=== PATIENT | female | born 1935 | race Caucasian/White ===

== ENCOUNTER 2018-01-26 16:17 | Inpatient (IN) | payer MEDICARE ==
[~2018-01-26] VITALS: Ht 160 cm; Wt 72.1 kg
--- NOTE | ~2018-01-26 | PN ---
PATIENT:VALORIE UNDERWOOD MEDICAL RECORD: [id number] LOCATION:[facility] ADMISSION DATE: 01/26/18 PROGRESS NOTE DATE OF SERVICE: 01/30/2018 SUBJECTIVE: The patient's case was discussed with staff. She has no new complaint. OBJECTIVE: The patient is in good behavioral control with limited insight about her condition. She is impaired cognitively, but is eating well. ASSESSMENT: No change in diagnoses. PLAN: Supportive and educational interventions were made. The family has requested that I discontinue the Aricept. I do not know the reason, but will find out, and as simply a matter of respecting their wishes, I will discontinue it for the time being. In addition to this, I am going to continue tapering her Celexa downward and I will reduce it to 10 mg a day starting tomorrow. TRANSINT:[id number] Voice Confirmation ID: [id number] DOCUMENT ID: [id number] CASEY HAMILTON MD at 1327 CC: [id number] DICTATION DATE: 01/30/18 1303 HAMMER SETTER: 01/30/18 1325 ADM IN [facility] [address] [place] [address]
--- NOTE | ~2018-01-26 | PN ---
PATIENT:VALORIE UNDERWOOD MEDICAL RECORD: [id number] LOCATION:[facility] ADMISSION DATE: 01/26/18 PROGRESS NOTE DATE OF SERVICE: 02/01/2018 SUBJECTIVE: No new complaint. OBJECTIVE: Staff report the patient is doing better overall. She is tolerating medications well and is cooperative. On exam, mood is for the most part euthymic. Affect is rather constricted. Speech remains somewhat terse. Content of thought is negative for overt psychosis. Sensorium shows no change. ASSESSMENT: No change in diagnosis. PLAN: 1. Continue current medication. 2. Continue supportive therapy. TRANSINT:[id number] Voice Confirmation ID: [id number] DOCUMENT ID: [id number] RANDY LONGO III, MD at 0530 CC: [id number] DICTATION DATE: 02/01/18 1159 POLICE PATROL OFFICER: 02/01/18 1304 ADM IN [facility] [address] [place] [address]
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
--- NOTE | ~2018-01-26 | PN ---
PATIENT:VALORIE UNDERWOOD MEDICAL RECORD: [id number] LOCATION:[facility] ADMISSION DATE: 01/26/18 PROGRESS NOTE DATE OF SERVICE: 02/07/2018 SUBJECTIVE: The patient's case was discussed with staff. She has no new complaint. OBJECTIVE: The patient is in good behavioral control with limited insight about her condition. She does tolerate her medicines well. ASSESSMENT: No change in diagnoses. PLAN: The patient will be transitioned out of the hospital today. Her long-term prognosis is guarded. She does not represent an acute danger to herself or others. Followup will be with her primary care physician. TRANSINT:[id number] Voice Confirmation ID: [id number] DOCUMENT ID: [id number] CASEY HAMILTON MD at 1159 CC: [id number] DICTATION DATE: 02/07/18 1259 BUSINESS EDITOR: 02/07/18 1314 DIS IN 02/07/18 [id number] [place] [address]
--- NOTE | ~2018-01-26 | PN ---
PATIENT:VALORIE UNDERWOOD MEDICAL RECORD: [id number] LOCATION:[facility] ADMISSION DATE: 01/26/18 PROGRESS NOTE DATE OF SERVICE: 02/06/2018 SUBJECTIVE: The patient's case was discussed with staff. She has no new complaint. OBJECTIVE: The patient denies intent to harm herself or others. She generally tolerates her medicines well. Eye contact is fair. ASSESSMENT: No change in diagnoses. PLAN: Current medicines and therapies have been reviewed and will be maintained. Long-term prognosis is guarded. I anticipate she can be transitioned out of the hospital tomorrow. TRANSINT:[id number] Voice Confirmation ID: [id number] DOCUMENT ID: [id number] CASEY HAMILTON MD at 1244 CC: [id number] DICTATION DATE: 02/06/18 1312 SUPERVISOR RECORD PRESS: 02/06/18 1317 DIS IN 02/07/18 [id number] [place] [address]
--- NOTE | ~2018-01-26 | PN ---
PATIENT:VALORIE UNDERWOOD MEDICAL RECORD: [id number] LOCATION:[facility] ADMISSION DATE: 01/26/18 PROGRESS NOTE DATE OF SERVICE: 01/31/2018 SUBJECTIVE: The patient's case was discussed with staff. She has no new complaint. OBJECTIVE: The patient appears a little sedated. Her short term memory is severely impaired. She denies any intent to harm herself or others and has not been aggressive. ASSESSMENT: No change in diagnoses. PLAN: Supportive and educational interventions were made. Assisted prognosis is guarded. I am going to discontinue her Celexa and will reduce her dose of Klonopin. TRANSINT:[id number] Voice Confirmation ID: [id number] DOCUMENT ID: [id number] CASEY HAMILTON MD at 1203 CC: [id number] DICTATION DATE: 01/31/18 1336 SIMULATION TECHNICIAN: 01/31/[address] [facility] [address] [place] [address]
--- NOTE | ~2018-01-26 | PN ---
PATIENT:VALORIE UNDERWOOD MEDICAL RECORD: [id number] LOCATION:[facility] ADMISSION DATE: 01/26/18 PROGRESS NOTE DATE OF SERVICE: 02/05/2018 SUBJECTIVE: The patient's case was discussed with staff. She has no new complaint. OBJECTIVE: The patient is in good behavioral control with limited insight about her condition. She tolerates her medicines well. ASSESSMENT: No change in diagnoses. PLAN: Current medicines and therapies have been reviewed and will be maintained. Long-term prognosis is guarded. TRANSINT:[id number] Voice Confirmation ID: [id number] DOCUMENT ID: [id number] CASEY HAMILTON MD at 1301 CC: [id number] DICTATION DATE: 02/05/18 1341 IMMIGRATION CASE MANAGER: 02/05/18 1354 ADM IN [place] [id number] [place] [address]
--- NOTE | ~2018-01-26 | PN ---
PATIENT:VALORIE UNDERWOOD MEDICAL RECORD: [id number] LOCATION:[facility] ADMISSION DATE: 01/26/18 PROGRESS NOTE DATE OF SERVICE: 02/04/2018 SUBJECTIVE: The patient's case was discussed with staff. She has no new complaint. OBJECTIVE: The patient is in good behavioral control with limited insight about her condition. She tolerates her medicines well. She was tested by Dr. Hilda Castrejon and scored 12 out of 30. She is going to have her Seroquel discontinued secondary to some sedation. For the time being, I am going to keep her on the low dose of Klonopin, but may change that soon. TRANSINT:[id number] Voice Confirmation ID: [id number] DOCUMENT ID: [id number] CASEY HAMILTON MD at 1019 CC: [id number] DICTATION DATE: 02/04/18 1243 SEED COLLECTOR: 02/04/18 1351 ADM IN [place] [id number] [place] [address]
--- NOTE | ~2018-01-26 | PN ---
PATIENT:VALORIE UNDERWOOD MEDICAL RECORD: [id number] LOCATION:[facility] ADMISSION DATE: 01/26/18 PROGRESS NOTE DATE OF SERVICE: 01/29/2018 SUBJECTIVE: The patient's case was discussed with staff. She has no new complaint. OBJECTIVE: The patient is sleeping reasonably well. She is eating reasonably well. She has not been aggressive here and has no real recollection of her [facility] the [facility]. ASSESSMENT: No change in diagnoses. PLAN: Supportive and educational interventions were made. Halfway prognosis is guarded. TRANSINT:[id number] Voice Confirmation ID: [id number] DOCUMENT ID: [id number] CASEY HAMILTON MD at 1249 CC: [id number] DICTATION DATE: 01/29/18 1514 GRAIN LOADER: 01/29/18 1543 ADM IN [facility] [address] [place] [address]
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
[2018-01-26 17:11] LABS: BASOPHILS 0.5 % (0-2); EOSINOPHILS 5.8 % (0-7); HEMATOCRIT 39.8 % (36.0-48.0); HEMOGLOBIN 13.1 g/dL (12-16); LYMPHOCYTES 40.8 % (15-50); MCH 31.4 pg (26.0-34.0); MCHC 32.9 g/dL (31.0-37.0); MCV 95.4 fL (80.0-100.0); MEAN PLATELET VOLUME 11.1 fL (7.4-10.4); MONOCYTES 16.2 % (2-11); NEUTROPHILS 36.7 % (40-80); PLATELET COUNT 140 10x3/uL (130-400); RBC 4.17 10x6/uL (4.00-5.40); RDW 14.7 % (11.5-14.5); WBC 3.8 10x3/uL (4.8-10.8)
[2018-01-26 17:14] LABS: APPEARANCE HAZY (CLEAR); BILIRUBIN 2+ (NEGATIVE); COLOR YELLOW (YELLOW); GLUCOSE NEGATIVE (NEGATIVE); KETONE NEGATIVE (NEGATIVE); NITRITE POSITIVE (NEGATIVE); PROTEIN NEGATIVE (NEGATIVE)
[2018-01-26 17:15] LABS: BACTERIA MODERATE /hpf (NONE SEEN); RED CELLS - URINE 0-5 /hpf (0-5)
[2018-01-26 17:31] LABS: ALBUMIN 2.6 g/dL (3.4-5.0); ALKALINE PHOSPHATASE 317 U/L (46-116); ALT (SGPT) 26 U/L (10-68); BILIRUBIN - TOTAL 0.96 mg/dL (0.2-1.3); CALC OSMOLALITY 281 mosm/kg (275-300); CALCIUM 8.4 mg/dL (8.5-10.1); CARBON DIOXIDE 31.3 mmol/L (21.0-32.0); CHLORIDE - SERUM 105 mmol/L (98-107); CREATININE - SERUM 0.6 mg/dL (0.6-1.3); GLUCOSE 92 mg/dL (74-106); PROTEIN - SERUM 7.6 g/dL (6.4-8.2); SODIUM 141 mmol/L (136-145); UREA NITROGEN 14 mg/dL (7-18); eGFR NON AFRICAN AMERICAN > 90 mL/min (90-120)
[2018-01-26 19:49] LABS: UDS - AMPHET NEGATIVE QUAL (NEGATIVE); UDS - BARB NEGATIVE QUAL (NEGATIVE); UDS - BENZO NEGATIVE QUAL (NEGATIVE); UDS - COCAINE NEGATIVE QUAL (NEGATIVE); UDS - OPIATE NEGATIVE QUAL (NEGATIVE); UDS - PCP NEGATIVE QUAL (NEGATIVE); UDS - THC NEGATIVE QUAL (NEGATIVE)
[2018-01-26 20:46] VITALS: BP 122/67
[2018-01-27] MEDS ORDERED: ARICEPT5 MG PO (06:36)
[2018-01-27] MEDS ORDERED: CELEXA40 MG PO (06:37)
[2018-01-27] MEDS ORDERED: VITAMIN B-12500 MC1 PO (06:38)
[2018-01-27] MEDS ORDERED: VITAMIN D250000 UNIT PO (06:41)
[2018-01-27] MEDS ORDERED: KLONOPIN0.5 MG PO ×4 (06:43→06:53)
[2018-01-27] MEDS ORDERED: SENNA PLUS TA1 UDTAB PO (06:44)
[2018-01-27] MEDS ORDERED: SEROQUEL25 MG PO (06:47)
[2018-01-27] MEDS ORDERED: CALCIUM 600+D T1 TA1 PO (06:48)
[2018-01-27] MEDS ORDERED: SINEMET 25-1001 EACH PO ×2 (06:51→06:58)
[2018-01-27] MEDS ORDERED: PHENERGAN25 MG RC (06:54)
[2018-01-27] MEDS ORDERED: ACETAMINOPHEN325 MG PO (06:59)
[2018-01-27 07:00] VITALS: BP 119/70
[2018-01-27 07:38] LABS: BASOPHILS 0.6 % (0-2); EOSINOPHILS 5.8 % (0-7); HEMATOCRIT 37.9 % (36.0-48.0); HEMOGLOBIN 12.6 g/dL (12-16); LYMPHOCYTES 44.1 % (15-50); MCH 31.7 pg (26.0-34.0); MCHC 33.2 g/dL (31.0-37.0); MCV 95.2 fL (80.0-100.0); MONOCYTES 16.5 % (2-11); PLATELET COUNT 153 10x3/uL (130-400); RBC 3.98 10x6/uL (4.00-5.40); RDW 14.6 % (11.5-14.5); WBC 3.6 10x3/uL (4.8-10.8)
[2018-01-27 08:00] LABS: ALBUMIN 2.3 g/dL (3.4-5.0); ALKALINE PHOSPHATASE 296 U/L (46-116); ALT (SGPT) 30 U/L (10-68); CALC OSMOLALITY 281 mosm/kg (275-300); CALCIUM 8.4 mg/dL (8.5-10.1); CARBON DIOXIDE 30.6 mmol/L (21.0-32.0); CHLORIDE - SERUM 107 mmol/L (98-107); CHOL - HDL RATIO 2.6 ratio (2.3-4.1); CHOLESTEROL, TOTAL 130 mg/dL (0-200); CREATININE - SERUM 0.6 mg/dL (0.6-1.3); GLUCOSE 90 mg/dL (74-106); HDL CHOLESTEROL 50 mg/dL (32-96); LDL CHOLESTEROL 73 mg/dL (0-100); LDL-HDL RATIO 1.5 ratio (1.5-3.5); PROTEIN - SERUM 6.9 g/dL (6.4-8.2); SODIUM 142 mmol/L (136-145); THYROID STIMULATING HORMONE 2.09 uIU/mL (0.36-3.74); TRIGLYCERIDE 38 mg/dL (30-200); UREA NITROGEN 11 mg/dL (7-18); eGFR NON AFRICAN AMERICAN > 90 mL/min (90-120)
[2018-01-27 11:01] VITALS: BP 122/68; BMI 28.2
[2018-01-27 19:35] VITALS: BP 136/64
[2018-01-28 07:40] VITALS: BP 116/58
[2018-01-28 13:19] LABS: APPEARANCE CLEAR (CLEAR); BILIRUBIN NEGATIVE (NEGATIVE); COLOR DK YELLOW (YELLOW); GLUCOSE NEGATIVE (NEGATIVE); KETONE NEGATIVE (NEGATIVE); NITRITE NEGATIVE (NEGATIVE); PROTEIN NEGATIVE (NEGATIVE); UROBILINOGEN NORMAL (NORMAL)
[2018-01-28 18:37] VITALS: BP 83/50
[2018-01-29 08:19] LABS: FOLATE (FOLIC ACID) - SERUM 8.7 ng/mL (>3.0); RAPID PLASMA REAGIN Non Reactive (Non Reactive); VITAMIN D 25 HYDROXY 28.6 ng/mL (30.0-100.0)
[2018-01-29 10:20] VITALS: BP 125/69
[2018-01-29 11:42] VITALS: Ht 160 cm; Wt 72.1 kg
[2018-01-29 22:23] VITALS: BP 158/71
[2018-01-30 09:45] VITALS: BP 119/66
[2018-01-30 20:05] VITALS: BP 114/66
[2018-01-31 08:42] VITALS: BP 123/63
[2018-01-31 19:21] VITALS: BP 129/72
[2018-02-01 08:34] VITALS: BP 105/55
[2018-02-01 19:47] VITALS: BP 159/63
[2018-02-02 09:10] VITALS: BP 119/65
[2018-02-02 19:18] VITALS: BP 112/55
[2018-02-03 07:00] VITALS: BP 132/74
[2018-02-03 18:56] VITALS: BP 111/69
[2018-02-04 07:00] VITALS: BP 122/68
[2018-02-04 19:43] VITALS: BP 108/58
[2018-02-05 09:30] VITALS: BP 129/80
[2018-02-05 21:16] VITALS: BP 123/68
[2018-02-06 10:40] VITALS: BP 134/71
[2018-02-06 19:45] VITALS: BP 127/67
[2018-02-07 09:06] VITALS: BP 145/92
== END 2018-02-07 10:15 | DRG 57 ==
LOC: D.ER 16:17 → D.PSYCH 19:20
PROVIDERS: Emergency Medicine; Psychiatry & Neurology Psychiatry
DX: G30.1 Alzheimer's disease with late onset (principal); F02.81 Dementia in other diseases classified elsewhere, unspecified severity, with behavioral disturbance; N39.0 Urinary tract infection, site not specified; G20 Parkinson's disease; B96.4 Proteus (mirabilis) (morganii) as the cause of diseases classified elsewhere; K74.5 Biliary cirrhosis, unspecified; E53.8 Deficiency of other specified B group vitamins; E55.9 Vitamin D deficiency, unspecified; M81.0 Age-related osteoporosis without current pathological fracture; M19.90 Unspecified osteoarthritis, unspecified site; F41.8 Other specified anxiety disorders; K59.09 Other constipation